=== PATIENT | female | born 1985 | race Two or more races ===

== ENCOUNTER 2021-10-17 19:01 | Emergency (ER) | payer OTHER ==
[~2021-10-17] VITALS: Ht 167.6 cm; Wt 65.8 kg
== END 2021-10-17 22:13 | disposition home or self-care (01) ==
LOC: ER 19:01
DX: U07.1 COVID-19 (principal); J45.998 Other asthma; B34.9 Viral infection, unspecified

== ENCOUNTER 2021-11-09 02:20 | Outpatient (CLI) | payer OTHER | END 2021-11-09 02:50 | disposition home or self-care (01) | LOC: PPH VACUNA 02:20 | PROVIDERS: ATTEND Emergency Medicine Pediatric Emergency Medicine | DX: Z23 Encounter for immunization (principal) ==